=== PATIENT | female | born 1970 | race Caucasian/White ===

== ENCOUNTER 2018-02-15 07:33 | Day surgery (SDC) | payer BC ==
[2018-02-15] MEDS ORDERED: LR 1,000 ML IV ×2 (07:45→10:15)
[2018-02-15] MEDS ORDERED: MIDAZOLAM INJ 5 MG/ML VIAL (J2250) As Ordered (07:58)
[2018-02-15] MEDS ORDERED: PROPOFOL 200 MG/20 ML VIAL As Ordered ×2 (07:58→07:59)
[2018-02-15] MEDS ORDERED: LIDOCAINE 2% INJ 100 MG/5 ML SDV (FOR ANES.) As Ordered (07:59)
[2018-02-15] MEDS ORDERED: fentaNYL 100 MCG/2 ML INJECTION (J3010) As Ordered (07:59)
[2018-02-15 08:18] LABS: CONTROL LINE HCG INT CTR LINE PRESENT; HCG, SERUM QUALITATIVE NEGATIVE (NEGATIVE)
[2018-02-15] MEDS: BUPIVACAINE HCL 0.5% 10 ML VIAL As Ordered (09:09)
[2018-02-15] MEDS: dexameTHASONE 4 MG/ML 1ML VIAL (J1100) As Ordered ×2 (09:09→09:28)
[2018-02-15] MEDS: BACITRACIN PWD 50,000 UNITS VIAL As Ordered (09:27)
[2018-02-15] MEDS: NEOSPORIN GU IRRIG 20 ML VIAL As Ordered (09:27)
[2018-02-15] MEDS: LIDOCAINE 2% MDV 20 ML VIAL As Ordered (09:29)
[2018-02-15] MEDS: BUPIVACAINE HCL 0.25% 30 ML VIAL As Ordered (09:29)
[2018-02-15] MEDS ORDERED: ONDANSETRON 4MG/2ML VIAL (J2405) IV (10:15)
[2018-02-15] MEDS ORDERED: fentaNYL 100 MCG/2 ML INJECTION (J3010) IV (10:15)
== END 2018-02-15 10:47 | disposition home or self-care (01) ==
LOC: M SDC 07:33
DX: G57.62 Lesion of plantar nerve, left lower limb (principal); J45.909 Unspecified asthma, uncomplicated
CPT/HCPCS: 28080

== ENCOUNTER → 2018-02-19 | Outpatient (REF) | payer BC | LOC: M SFHCLERA 14:46 | DX: J02.9 Acute pharyngitis, unspecified (principal) ==

== ENCOUNTER → 2021-04-17 | Outpatient (REF) | payer BC ==
[~2021-04-17] MED LIST: PROAAER10 INH
== END ==
LOC: M LAB REF 18:29
PROVIDERS: ATTEND Dermatology
DX: D17.21 Benign lipomatous neoplasm of skin and subcutaneous tissue of right arm (principal); D17.79 Benign lipomatous neoplasm of other sites

== ENCOUNTER → 2024-05-12 | Outpatient (CLI) | payer BC | LOC: M RAD 12:03 | PROVIDERS: ATTEND Physician Assistant Medical | DX: S62.312A Displaced fracture of base of third metacarpal bone, right hand, initial encounter for closed fracture (principal); W18.30XA Fall on same level, unspecified, initial encounter; Y92.009 Unspecified place in unspecified non-institutional (private) residence as the place of occurrence of the external cause ==

== ENCOUNTER → 2025-01-12 | Outpatient (CLI) | payer BC ==
[2025-01-12 10:29] LABS: COLLAGEN EPINEPHRINE 129 SECONDS (74-162)
== END ==
LOC: M LAB 08:41
PROVIDERS: ATTEND Student in an Organized Health Care Education/Training Program
DX: Z01.818 Encounter for other preprocedural examination (principal)